=== PATIENT | male | born 1970 | race Caucasian/White ===

== ENCOUNTER 2017-09-11 15:08 | Inpatient (IN) | payer MEDICAID ==
[~2017-09-11] VITALS: Ht 213.4 cm; Wt 165.9 kg
[~2017-09-11 15:08] MED LIST: OXYC-138 PO
[2017-09-11 15:29] LABS: BASOPHILS % (AUTO) 0.5 % (0-1); EOSINOPHILS # (AUTO) 0.1 X10'3 (0-0.9); EOSINOPHILS % (AUTO) 1.5 % (0-6); HEMATOCRIT 38.3 % (42.0-52.0); HEMOGLOBIN 13.3 g/dl (14.0-17.9); LYMPHOCYTES # (AUTO) 2.1 X10'3 (1.1-4.8); LYMPHOCYTES % (AUTO) 38.4 % (21-51); MEAN CORPUSCULAR HEMOGLOBIN 32.2 PG (27.0-31.0); MEAN CORPUSCULAR HGB CONC 34.6 % (33.0-36.5); MEAN PLATELET VOLUME 7.2 FL (7.4-10.4); MONOCYTES # (AUTO) 0.4 X10'3 (0-0.9); MONOCYTES % (AUTO) 6.6 % (2-12); NEUTROPHILS # (AUTO) 2.9 X10'3 (1.8-7.7); PLATELET COUNT 214 X10'3 (140-440); RED BLOOD COUNT 4.12 X10'6 (4.70-6.10); RED CELL DISTRIBUTION WIDTH 13.9 % (11.5-14.5); WHITE BLOOD COUNT 5.4 X10'3 (4.5-11.0)
[2017-09-11 15:40] LABS: INR 0.9 INR; PARTIAL THROMBOPLASTIN TIME 25 SECONDS (22-32); PROTHROMBIN TIME 9.8 SECONDS (9.0-12.0)
[2017-09-11 15:44] LABS: GLUCOSE 126 MG/DL (70-104); SODIUM 139 MMOL/L (135-145)
[2017-09-11 15:45] LABS: ALANINE AMINOTRANSFERASE 25 U/L (12-78); ALBUMIN 4.3 G/DL (3.4-5.0); ALBUMIN/GLOBULIN RATIO 1.4 (1.1-1.5); ALKALINE PHOSPHATASE 94 IU/L (46-116); ANION GAP 11 (8-16); ASPARTATE AMINO TRANSFERASE 20 U/L (10-37); BILIRUBIN,TOTAL 0.5 MG/DL (0.1-1.0); BLOOD UREA NITROGEN 6 MG/DL (7-18); BUN/CREATININE RATIO 6.8 (5.4-32.0); CHLORIDE 103 MMOL/L (99-107); CREATININE 0.88 MG/DL (0.60-1.10); POTASSIUM 4.2 MMOL/L (3.5-5.1); TOTAL CARBON DIOXIDE 25.1 MMOL/L (24-32); TOTAL PROTEIN 7.4 G/DL (6.4-8.2); eGFR > 90 ML/MIN
[2017-09-11] MEDS ORDERED: aspirin 81mg tab.chew PO ONE (16:10)
[2017-09-11] MEDS ORDERED: normal saline 1000ml 1,000 ML IV SCH (16:12)
[2017-09-11] MEDS ORDERED: HYDROcodone/acetaminophen 5mg/325mg tablet PO PRN (16:15)
[2017-09-11] MEDS ORDERED: potassium Cl 20 mEq SR tablet PO PRN ×2 (16:15)
[2017-09-11] MEDS ORDERED: magnesium hydroxide 30ml (MOM) UD suspension PO PRN (16:15)
[2017-09-11] MEDS ORDERED: mag hydrox/Alum hydrox/simeth 30ml oral suspension PO PRN (16:15)
[2017-09-11] MEDS ORDERED: morphine 4 MG/ML inj SYRINge IV PRN ×2 (16:15)
[2017-09-11] MEDS ORDERED: HYDROcodone/acetaminophen 10/325mg tab PO PRN (16:15)
[2017-09-11] MEDS ORDERED: magnesium 4gm in 100ml NS 100 ML IV PRN (16:15)
[2017-09-11] MEDS ORDERED: acetaminophen 325mg tablet PO PRN ×2 (16:15)
[2017-09-11] MEDS ORDERED: magnesium Cl slow-release 64mg tablet PO PRN (16:15)
[2017-09-11] MEDS ORDERED: magnesium/D5W IVPB 50 ML IV PRN (16:15)
[2017-09-11] MEDS ORDERED: potassium Cl 40MEQ/NS 500ml 500 ML IV PRN ×2 (16:15)
[2017-09-11] MEDS: ondansetron/PF 4mg/2ml inj IV PRN ×2 (16:35→22:22)
[2017-09-11] MEDS ORDERED: CAFFEINE CITRATE 60 MG/3 ML injection vial IV PRN (16:50)
[2017-09-11] MEDS ORDERED: regadenoson 0.4mg/5ml syringe IV PRN (16:50)
[2017-09-11] MEDS ORDERED: metoprolol tartrate 1mg/ml inj IV PRN (16:50)
[2017-09-11 17:14] VITALS: BP 138/96
[2017-09-11] MEDS: HYDROmorphone 1 mg/ml syringe IV PRN ×2 (17:30→21:15)
[2017-09-11 18:04] LABS: ACETAMINOPHEN < 2.0 UG/ML (10-30)
[2017-09-11 19:00] VITALS: BP 130/83
[2017-09-11] MEDS: nitroGLYCERIN 0.4mg SUBLingual tab SL PRN ×3 (20:36→20:49)
[2017-09-11] MEDS ORDERED: ibuprofen 200mg tablet PO ONE (21:00)
[2017-09-11] MEDS ORDERED: nitroGLYCERIN 0.4mg SUBLingual tab SL PRN (22:20)
[2017-09-11] MEDS ORDERED: ACET-812 PO (22:48)
[2017-09-11] MEDS ORDERED: LANS15CA10 PO (22:48)
[2017-09-11 23:46] VITALS: BP 103/72
[2017-09-12] VITALS (13 sets, daily range): BP systolic 91–119; BP diastolic 57–84
[2017-09-12] MEDS: HYDROmorphone 1 mg/ml syringe IV PRN ×2 (04:06→07:44)
[2017-09-12 05:20] LABS: BASOPHILS % (AUTO) 0.5 % (0-1); EOSINOPHILS # (AUTO) 0.1 X10'3 (0-0.9); EOSINOPHILS % (AUTO) 1.7 % (0-6); HEMATOCRIT 40.7 % (42.0-52.0); LYMPHOCYTES # (AUTO) 1.7 X10'3 (1.1-4.8); LYMPHOCYTES % (AUTO) 34.4 % (21-51); MEAN CORPUSCULAR HEMOGLOBIN 32.1 PG (27.0-31.0); MEAN CORPUSCULAR HGB CONC 34.4 % (33.0-36.5); MEAN CORPUSCULAR VOLUME 93.4 FL (78-98); MEAN PLATELET VOLUME 7.8 FL (7.4-10.4); MONOCYTES # (AUTO) 0.2 X10'3 (0-0.9); MONOCYTES % (AUTO) 4.6 % (2-12); NEUTROPHILS # (AUTO) 2.8 X10'3 (1.8-7.7); NEUTROPHILS % (AUTO) 58.8 % (42-75); PLATELET COUNT 206 X10'3 (140-440); RED BLOOD COUNT 4.35 X10'6 (4.70-6.10); RED CELL DISTRIBUTION WIDTH 14.1 % (11.5-14.5); WHITE BLOOD COUNT 4.8 X10'3 (4.5-11.0)
[2017-09-12 06:01] LABS: ALANINE AMINOTRANSFERASE 21 U/L (12-78); ALBUMIN 4.2 G/DL (3.4-5.0); ALBUMIN/GLOBULIN RATIO 1.2 (1.1-1.5); ALKALINE PHOSPHATASE 96 IU/L (46-116); ANION GAP 10 (8-16); ASPARTATE AMINO TRANSFERASE 14 U/L (10-37); BILIRUBIN,TOTAL 0.5 MG/DL (0.1-1.0); BLOOD UREA NITROGEN 6 MG/DL (7-18); BUN/CREATININE RATIO 6.5 (5.4-32.0); CALCIUM 9.2 MG/DL (8.5-10.1); CHLORIDE 102 MMOL/L (99-107); CREATININE 0.93 MG/DL (0.60-1.10); GLUCOSE 134 MG/DL (70-104); POTASSIUM 4.1 MMOL/L (3.5-5.1); SODIUM 141 MMOL/L (135-145); TOTAL CARBON DIOXIDE 29.3 MMOL/L (24-32); TOTAL PROTEIN 7.6 G/DL (6.4-8.2); eGFR 86 ML/MIN
[2017-09-12] MEDS ORDERED: pantoprazole 40mg Tablet.DR PO SCH (07:30)
[2017-09-12] MEDS: ondansetron/PF 4mg/2ml inj IV PRN (07:44)
[2017-09-12] MEDS ORDERED: enoxaparin 40mg/0.4ml syringe SUBCUT SCH (08:00)
[2017-09-12] MEDS ORDERED: K and/or MAG REPLACEMENT MC SCH (08:00)
[2017-09-12] MEDS ORDERED: CAFFEINE CITRATE 60 MG/3 ML injection vial IV ONE (08:37)
[2017-09-12] MEDS ORDERED: regadenoson 0.4mg/5ml syringe IV ONE (08:37)
[2017-09-12 09:18] LABS: CHOL/HDL RATIO 5.4 (0.00-4.99); CHOLESTEROL 242 MG/DL (0-200); HDL CHOLESTEROL 45 MG/DL (35-60); LDL CHOLESTEROL 163 MG/DL (50-100); TRIGLYCERIDES 134 MG/DL (20-135)
[2017-09-12] MEDS ORDERED: oxyCODONE/APAP 5-325mg tablet PO PRN (11:25)
[2017-09-12] MEDS ORDERED: atorvastatin 20mg tablet PO SCH (11:30)
[2017-09-12] MEDS ORDERED: meclizine 12.5mg tablet PO PRN (11:35)
[2017-09-12] MEDS ORDERED: ASPI-611 PO (14:03)
[2017-09-12] MEDS ORDERED: ATOR20TA66 PO (14:03)
[2017-09-12] MEDS ORDERED: PANT40TA4 PO (14:03)
[2017-09-12] MEDS ORDERED: MECL12.584 PO (14:03)
== END 2017-09-12 15:00 | disposition home or self-care (01) | DRG 243 ==
LOC: ER 15:09 → ED HOLD 16:12 → SUR 3N 16:37
PROVIDERS: ADMIT Internal Medicine; ATTEND Family Medicine
PROC: 4A02XM4 Measurement of Cardiac Total Activity, External Approach (ICD-10-PCS; principal; 2017-09-12)
PROC: 3E033HZ Introduction of Radioactive Substance into Peripheral Vein, Percutaneous Approach (ICD-10-PCS; 2017-09-12)
DX: K21.9 Gastro-esophageal reflux disease without esophagitis (principal); F11.10 Opioid abuse, uncomplicated; E66.9 Obesity, unspecified; F12.90 Cannabis use, unspecified, uncomplicated; G89.4 Chronic pain syndrome; H81.10 Benign paroxysmal vertigo, unspecified ear; M47.812 Spondylosis without myelopathy or radiculopathy, cervical region; Z79.899 Other long term (current) drug therapy; Z82.49 Family history of ischemic heart disease and other diseases of the circulatory system; Z86.73 Personal history of transient ischemic attack (TIA), and cerebral infarction without residual deficits; Z98.84 Bariatric surgery status; Z68.36 Body mass index [BMI] 36.0-36.9, adult; Z88.0 Allergy status to penicillin; Z88.8 Allergy status to other drugs, medicaments and biological substances; Z88.5 Allergy status to narcotic agent
CPT/HCPCS: 36415; 70450; 71045; 78451; 80053; 80061; 80329; 83605; 83735; 83880; 84484; 85025; 85610; 85730; 87040; 87070; 93005; 93017; 93306; 99285; A9500; J1170; J1650; J2405; J7030; J8597

== ENCOUNTER 2017-12-03 13:39 | Emergency (ER) | payer MEDICAID ==
[~2017-12-03] VITALS: Ht 213.4 cm; Wt 165.9 kg
[~2017-12-03 13:39] MED LIST changes: +ACET-812 PO; +ATOR20TA66 PO; +LANS15CA10 PO; +MECL12.584 PO; -OXYC-138 PO
[2017-12-03 13:42] VITALS: BP 139/81
[2017-12-03] MEDS ORDERED: oxyCODONE/APAP 10/325mg tablet PO ONE (14:15)
[2017-12-03] MEDS ORDERED: PER10325T PO (15:05)
== END 2017-12-03 15:15 | disposition home or self-care (01) ==
LOC: ER 13:40
DX: S60.211A Contusion of right wrist, initial encounter (principal); G89.29 Other chronic pain; Z86.73 Personal history of transient ischemic attack (TIA), and cerebral infarction without residual deficits; Z88.5 Allergy status to narcotic agent; Z88.0 Allergy status to penicillin; Z79.899 Other long term (current) drug therapy; Z56.0 Unemployment, unspecified; X58.XXXA Exposure to other specified factors, initial encounter; Y93.89 Activity, other specified; Y92.89 Other specified places as the place of occurrence of the external cause; Y99.8 Other external cause status
CPT/HCPCS: 29125; 71045; 73110; 73130; 99284

== ENCOUNTER 2018-10-01 07:22 | Emergency (ER) | payer MEDICAID ==
[~2018-10-01] VITALS: Ht 215.9 cm; Wt 170.0 kg
[2018-10-01] MEDS ORDERED: LIDOcaine 1% w/epiNEPHrine 1:200,000 30ml vial IM ONE (08:40)
[2018-10-01] MEDS ORDERED: TETanus/Pertussis (Acell)/Diphther VAC/PF (Tdap-Adult) 0.5ml syringe IM ONE (08:40)
[2018-10-01] MEDS ORDERED: CEPH-572 PO (10:06)
[2018-10-01 10:08] VITALS: BP 138/85
== END 2018-10-01 10:10 | disposition home or self-care (01) ==
LOC: ER 07:23
DX: S91.115A Laceration without foreign body of left lesser toe(s) without damage to nail, initial encounter (principal); G89.29 Other chronic pain; F10.99 Alcohol use, unspecified with unspecified alcohol-induced disorder; Z86.73 Personal history of transient ischemic attack (TIA), and cerebral infarction without residual deficits; Z98.84 Bariatric surgery status; Z98.890 Other specified postprocedural states; Z56.0 Unemployment, unspecified; Z88.5 Allergy status to narcotic agent; Z88.0 Allergy status to penicillin; Z79.899 Other long term (current) drug therapy; W26.8XXA Contact with other sharp object(s), not elsewhere classified, initial encounter; Y93.89 Activity, other specified; Y92.89 Other specified places as the place of occurrence of the external cause; Y99.8 Other external cause status; Y90.9 Presence of alcohol in blood, level not specified
CPT/HCPCS: 12001; 73660; 90471; 99283; 99284

== ENCOUNTER 2020-04-25 17:55 | Observation (INO) | payer MEDICAID ==
[~2020-04-25] VITALS: Ht 213.4 cm; Wt 171.4 kg
[~2020-04-25 17:55] MED LIST changes: +MECL-226 PO; -MECL12.584 PO
[2020-04-25] MEDS ORDERED: normal saline 1000ML IV soln IVB ONE (18:25)
[2020-04-25] MEDS ORDERED: aspirin 81mg tab.chew PO ONE (18:25)
[2020-04-25] MEDS ORDERED: nitroGLYCERIN 0.4mg/hour patch TD ONE (18:25)
[2020-04-25 18:28] LABS: BASOPHILS % (AUTO) 0.6 % (0-1); EOSINOPHILS # (AUTO) 0.2 X10'3 (0-0.9); EOSINOPHILS % (AUTO) 2.9 % (0-6); HEMATOCRIT 40.8 % (42.0-52.0); HEMOGLOBIN 13.8 g/dl (14.0-17.9); LYMPHOCYTES # (AUTO) 1.7 X10'3 (1.1-4.8); LYMPHOCYTES % (AUTO) 32.2 % (21-51); MEAN CORPUSCULAR HEMOGLOBIN 31.1 PG (27.0-31.0); MEAN CORPUSCULAR HGB CONC 33.9 g/dL (33.0-36.5); MEAN CORPUSCULAR VOLUME 91.9 FL (78-98); MEAN PLATELET VOLUME 8.3 FL (7.4-10.4); MONOCYTES # (AUTO) 0.3 X10'3 (0-0.9); MONOCYTES % (AUTO) 6.2 % (2-12); NEUTROPHILS % (AUTO) 58.1 % (42-75); PLATELET COUNT 193 X10'3 (140-440); RED BLOOD COUNT 4.43 X10'6 (4.70-6.10); RED CELL DISTRIBUTION WIDTH 14.1 % (11.5-14.5); WHITE BLOOD COUNT 5.2 X10'3 (4.5-11.0)
[2020-04-25 18:37] LABS: ALANINE AMINOTRANSFERASE 28 U/L (12-78); ALBUMIN 4.3 G/DL (3.4-5.0); ALBUMIN/GLOBULIN RATIO 1.2 (1.1-1.5); ALKALINE PHOSPHATASE 96 IU/L (46-116); ANION GAP 9 (8-16); ASPARTATE AMINO TRANSFERASE 30 U/L (10-37); BILIRUBIN,TOTAL 0.4 MG/DL (0.1-1.0); BLOOD UREA NITROGEN 9 MG/DL (7-18); BUN/CREATININE RATIO 9.2 (5.4-32.0); CALCIUM 9.2 MG/DL (8.5-10.1); CHLORIDE 103 MMOL/L (99-107); CREATININE 0.98 MG/DL (0.60-1.10); GLUCOSE 246 MG/DL (70-104); POTASSIUM 3.8 MMOL/L (3.5-5.1); SODIUM 141 MMOL/L (135-145); TOTAL PROTEIN 7.9 G/DL (6.4-8.2); eGFR 80 ML/MIN
[2020-04-25] MEDS ORDERED: meclizine 12.5mg tablet PO ONE (19:00)
[2020-04-25] MEDS ORDERED: APIX5TAB3 PO (19:47)
[2020-04-25] MEDS ORDERED: OXYC10TA47 PO (19:50)
[2020-04-25] MEDS ORDERED: CLOT15CR11 TOP (19:50)
[2020-04-25] MEDS ORDERED: LANS30CA37 PO (19:51)
[2020-04-25] MEDS ORDERED: ondansetron/PF 4mg/2ml inj IV PRN (20:50)
[2020-04-25] MEDS ORDERED: acetaminophen 325mg tablet PO PRN ×2 (20:50)
[2020-04-25] MEDS ORDERED: magnesium hydroxide 30ml (MOM) UD suspension PO PRN (20:50)
[2020-04-25] MEDS ORDERED: HYDROcodone/acetaminophen 5mg/325mg tablet PO PRN (20:50)
[2020-04-25] MEDS ORDERED: oxyCODONE IR 5mg (immed. release) tablet PO PRN (20:50)
[2020-04-25] MEDS ORDERED: morphine 2 MG/ML inj. syringe IV PRN ×2 (20:50)
[2020-04-25] MEDS ORDERED: HYDROcodone/acetaminophen 10/325mg tab PO PRN (20:50)
[2020-04-25] MEDS ORDERED: mag hydrox/Alum hydrox/simeth 30ml oral suspension PO PRN (20:50)
[2020-04-25] MEDS ORDERED: nitroGLYCERIN 0.4mg SUBLingual tab SL PRN (20:50)
[2020-04-25] MEDS ORDERED: clotrimazole topical cream 15gm tube TP PRN (20:50)
--- NOTE | 2020-04-25 22:48 | NUR ---
efran want to go home and does not want to be here.
--- NOTE | 2020-04-25 23:00 | NUR ---
Notified by laboratory personel that patient refused to have labs drawn.
--- NOTE | 2020-04-25 23:21 | NUR ---
STOPPED IN HALLWAY BY PATIENT RAISED VOICE AND WANTS TO KNOW WHY HE HAS NOT BEEN DISCHARGE HE DID NOT KNOW HE WAS BEING ADMITTED. SPOKE TO [employer]IR[employer]STERS MANAGER AND PAGED HOSPITALIST. PATIENT WANTED TO SPEAK TO HOSPITALIST AND REFUSES TO LEAVE AMA AFTER AGREEING TO LEAVE AND GO HOME REPORTS HE CAN NOT AFFORD TO STAY HERE AT THIS POINT PATIENT. CELL PHONE [phone] AND WANTS TO SPEAK TO MD IN HIS CARE NOW DR HUFFMAN WILL CALL PATIENT CELL PHONE AND SPEAK WITH PATIENT
[2020-04-26] VITALS (8 sets, daily range): BP systolic 118–136; BP diastolic 67–86
--- NOTE | 2020-04-26 01:15 | NUR ---
Pt is sleeping and does not want his vital signs taken, Pt moving about room, talking, no complaints of dizziness, or chest pain.
[2020-04-26] MEDS ORDERED: metoprolol tartrate 1mg/ml inj IV PRN (03:15)
[2020-04-26] MEDS ORDERED: nitroGLYCERIN 0.4mg SUBLingual tab SL PRN (03:15)
[2020-04-26] MEDS ORDERED: aminophylline 250mg/10ml inj. IV PRN (03:15)
--- NOTE | 2020-04-26 04:50 | NUR ---
Pt sleeping on his side. Pt declined vital signs stating he was fine.
[2020-04-26] MEDS ORDERED: regadenoson 0.4mg/5ml syringe IV ONE (06:00)
--- NOTE | 2020-04-26 06:42 | NUR ---
IN TO SEE PT VS DONE. PT DECLINES TO BE PLACED ON THE 5 LEAD MONITOR AT THIS TIME
--- NOTE | 2020-04-26 07:43 | NUR ---
NUC Squabbler IN ROOM TO INJECT AND WILL BE BACK BETWEEN FOR THE SCAN
[2020-04-26] MEDS ORDERED: apixaban 5mg tablet PO SCH (08:00)
[2020-04-26] MEDS ORDERED: aspirin 81mg tablet.DR PO SCH (08:00)
[2020-04-26] MEDS ORDERED: pantoprazole 40mg Tablet.DR PO SCH (08:00)
[2020-04-26 08:33] LABS: BASOPHILS % (AUTO) 0.8 % (0-1); EOSINOPHILS # (AUTO) 0.2 X10'3 (0-0.9); EOSINOPHILS % (AUTO) 4.2 % (0-6); HEMATOCRIT 35.9 % (42.0-52.0); HEMOGLOBIN 12.2 g/dl (14.0-17.9); LYMPHOCYTES # (AUTO) 1.4 X10'3 (1.1-4.8); LYMPHOCYTES % (AUTO) 33.5 % (21-51); MEAN CORPUSCULAR HEMOGLOBIN 30.9 PG (27.0-31.0); MEAN CORPUSCULAR HGB CONC 33.9 g/dL (33.0-36.5); MEAN CORPUSCULAR VOLUME 91.1 FL (78-98); MEAN PLATELET VOLUME 7.9 FL (7.4-10.4); MONOCYTES # (AUTO) 0.3 X10'3 (0-0.9); MONOCYTES % (AUTO) 8.4 % (2-12); NEUTROPHILS # (AUTO) 2.2 X10'3 (1.8-7.7); NEUTROPHILS % (AUTO) 53.1 % (42-75); PLATELET COUNT 165 X10'3 (140-440); RED BLOOD COUNT 3.94 X10'6 (4.70-6.10); RED CELL DISTRIBUTION WIDTH 14.1 % (11.5-14.5); WHITE BLOOD COUNT 4.1 X10'3 (4.5-11.0)
[2020-04-26 08:52] LABS: HEMOGLOBIN A1C 7.7 % (4.5-6.2)
[2020-04-26 09:01] LABS: ALBUMIN 3.5 G/DL (3.4-5.0); ANION GAP 7 (8-16); BLOOD UREA NITROGEN 7 MG/DL (7-18); CALCIUM 8.7 MG/DL (8.5-10.1); CHLORIDE 107 MMOL/L (99-107); CHOL/HDL RATIO 4.9 (0.00-4.99); CHOLESTEROL 214 MG/DL (0-200); CREATININE 0.87 MG/DL (0.60-1.10); GLUCOSE 178 MG/DL (70-104); HDL CHOLESTEROL 44 MG/DL (35-60); LDL CHOLESTEROL 143 MG/DL (50-100); POTASSIUM 3.8 MMOL/L (3.5-5.1); SODIUM 142 MMOL/L (135-145); TOTAL CARBON DIOXIDE 28.2 MMOL/L (24-32); TRIGLYCERIDES 128 MG/DL (20-135); eGFR > 90 ML/MIN
== END 2020-04-26 13:52 | disposition home or self-care (01) ==
LOC: ER 17:55 → ED HOLD 20:49
PROVIDERS: ADMIT Internal Medicine; ATTEND Family Medicine
DX: R07.89 Other chest pain (principal); R42 Dizziness and giddiness; E11.9 Type 2 diabetes mellitus without complications; E66.01 Morbid (severe) obesity due to excess calories; M19.90 Unspecified osteoarthritis, unspecified site; G89.29 Other chronic pain; M54.9 Dorsalgia, unspecified; Z86.718 Personal history of other venous thrombosis and embolism; Z86.73 Personal history of transient ischemic attack (TIA), and cerebral infarction without residual deficits; Z87.891 Personal history of nicotine dependence; Z98.84 Bariatric surgery status; Z79.82 Long term (current) use of aspirin; Z79.01 Long term (current) use of anticoagulants; Z79.899 Other long term (current) drug therapy; Z88.0 Allergy status to penicillin; Z88.5 Allergy status to narcotic agent; Z68.37 Body mass index [BMI] 37.0-37.9, adult
CPT/HCPCS: 36415; 70450; 71045; 78452; 80048; 80053; 80061; 83036; 83880; 84484; 85025; 93005; 93017; 96360; 99285; A9500; G0378; J2785; J7030; J8597

== ENCOUNTER 2022-05-24 09:26 | Inpatient (IN) | payer MEDICAID ==
[~2022-05-24] VITALS: Ht 208.3 cm; Wt 122.7 kg
[~2022-05-24 09:26] MED LIST changes: -ACET-812 PO; +APIX5TAB3 PO; -ATOR20TA66 PO; +CLOT15CR11 TOP; -LANS15CA10 PO; +LANS30CA37 PO; -MECL-226 PO; +OXYC10TA47 PO
[2022-05-24] MEDS ORDERED: oxyCODONE/APAP 10/325mg tablet PO ONE (12:10)
[2022-05-24] MEDS ORDERED: heparin 10,000 units/1 ML INJ IV ONE (13:10)
[2022-05-24] MEDS ORDERED: iohexol 350MG/ML 100ml bottle IV ONE (13:19)
[2022-05-24] MEDS: heparin 25,000 UNIT/250ml bag 250 ML IV PRN (14:44)
--- NOTE | 2022-05-24 14:47 | NUR ---
next pTT is 2030
[2022-05-24 14:51] LABS: BASOPHILS % (AUTO) 0.9 % (0-1); EOSINOPHILS % (AUTO) 0.9 % (0-6); HEMATOCRIT 43.2 % (42.0-52.0); HEMOGLOBIN 14.2 g/dl (14.0-17.9); LYMPHOCYTES % (AUTO) 18.8 % (21-51); MEAN CORPUSCULAR HEMOGLOBIN 30.4 PG (27.0-31.0); MEAN CORPUSCULAR HGB CONC 32.7 g/dL (33.0-36.5); MEAN CORPUSCULAR VOLUME 92.9 FL (78-98); MEAN PLATELET VOLUME 7.6 FL (7.4-10.4); MONOCYTES # (AUTO) 0.2 X10'3 (0-0.9); MONOCYTES % (AUTO) 3.9 % (2-12); NEUTROPHILS # (AUTO) 3.9 X10'3 (1.8-7.7); NEUTROPHILS % (AUTO) 75.5 % (42-75); PLATELET COUNT 292 X10'3 (140-440); RED BLOOD COUNT 4.65 X10'6 (4.70-6.10); RED CELL DISTRIBUTION WIDTH 14.1 % (11.5-14.5); WHITE BLOOD COUNT 5.2 X10'3 (4.5-11.0)
[2022-05-24 14:59] LABS: APTT 30 SECONDS (22-32)
[2022-05-24 15:00] LABS: ALANINE AMINOTRANSFERASE 16 U/L (12-78); ALBUMIN 4.5 G/DL (3.4-5.0); ALBUMIN/GLOBULIN RATIO 1.3 (1.1-1.5); ALKALINE PHOSPHATASE 137 IU/L (46-116); ANION GAP 7 (8-16); ASPARTATE AMINO TRANSFERASE 26 U/L (10-37); BILIRUBIN,TOTAL 0.7 MG/DL (0.1-1.0); BLOOD UREA NITROGEN 10 MG/DL (7-18); BUN/CREATININE RATIO 11.2 (5.4-32.0); CALCIUM 9.6 MG/DL (8.5-10.1); CHLORIDE 97 MMOL/L (99-107); CREATININE 0.89 MG/DL (0.60-1.10); GLUCOSE 168 MG/DL (70-104); POTASSIUM 4.3 MMOL/L (3.5-5.1); SODIUM 134 MMOL/L (135-145); TOTAL CARBON DIOXIDE 30.4 MMOL/L (24-32); eGFR 89 ML/MIN
[2022-05-24] MEDS ORDERED: ondansetron/PF 4mg/2ml inj IV ONE (15:15)
[2022-05-24] MEDS: morphine 4 MG/ML inj SYRINge IV PRN ×2 (15:24→18:53)
[2022-05-24] MEDS ORDERED: HYDROmorphone/PF 0.2 MG/ML SYRINGE IV PRN (16:25)
[2022-05-24] MEDS ORDERED: acetaminophen 325mg tablet PO PRN (16:25)
[2022-05-24] MEDS ORDERED: mag hydrox/Alum hydrox/simeth 30ml oral suspension PO PRN (16:25)
[2022-05-24] MEDS ORDERED: potassium Cl 40MEQ/1/2NS 520ml 520 ML IV PRN (16:25)
[2022-05-24] MEDS ORDERED: magnesium 4gm in 100ml NS 100 ML IV PRN (16:25)
[2022-05-24] MEDS ORDERED: HYDROmorphone inj. 0.5 MG/0.5 ML DISP.SYRIN IV PRN (16:25)
[2022-05-24] MEDS ORDERED: magnesium Cl slow-release 64mg tablet PO PRN (16:25)
[2022-05-24] MEDS ORDERED: ondansetron/PF 4mg/2ml inj IV PRN (16:25)
[2022-05-24] MEDS ORDERED: magnesium hydroxide 30ml (MOM) UD suspension PO PRN (16:25)
[2022-05-24] MEDS ORDERED: potassium Cl 20 mEq SR tablet PO PRN ×2 (16:25)
--- NOTE | 2022-05-24 16:38 | NUR ---
Back from [place] at this time.
[2022-05-24] MEDS ORDERED: TIZA-205 PO (17:07)
[2022-05-24] MEDS ORDERED: OXYC30TA PO (17:07)
[2022-05-24] MEDS ORDERED: FEXO-310 PO (17:07)
[2022-05-24] MEDS ORDERED: MORP60TA77 PO (17:07)
[2022-05-24] MEDS ORDERED: BUSP15TA3 PO (17:07)
[2022-05-24] MEDS ORDERED: loratadine 10mg tablet PO PRN (17:35)
[2022-05-24] MEDS ORDERED: OXYcodone immediate-release 10MG tablet PO PRN (17:35)
[2022-05-24] MEDS ORDERED: tizanidine 4mg tablet PO PRN (17:35)
[2022-05-24] MEDS ORDERED: busPIRone 15mg tablet PO PRN (17:35)
[2022-05-24] MEDS: normal saline 1000ml 1,000 ML IV SCH (19:12)
[2022-05-24] MEDS ORDERED: K and/or MAG REPLACEMENT MC SCH (20:00)
[2022-05-24] MEDS: docusate sod 100mg capsule PO SCH (20:36)
[2022-05-24] MEDS: morphine ER 30mg tablet PO SCH (20:36)
--- NOTE | 2022-05-24 21:43 | NUR ---
HEP DRIP TURNED OFF BY ARACELIS WEIR MD NOTIFIED
--- NOTE | 2022-05-24 22:04 | NUR ---
next pt-ptt at 2345 hep drip on hold, aware
--- NOTE | 2022-05-24 22:05 | NUR ---
report called to floor rn pt tx to room 3023 by [facility].
[2022-05-24 22:45] VITALS: BP 133/95
[2022-05-25] MEDS: oxyCODONE IR 5mg (immed. release) tablet PO PRN ×2 (01:16→10:30)
[2022-05-25] MEDS: heparin 25,000 UNIT/250ml bag 250 ML IV PRN (01:57)
[2022-05-25] MEDS: normal saline 1000ml 1,000 ML IV SCH (02:25)
[2022-05-25] MEDS: morphine ER 30mg tablet PO SCH (05:17)
[2022-05-25 07:00] VITALS: BP 141/75
[2022-05-25] MEDS ORDERED: pantoprazole 40mg Tablet.DR PO SCH (08:00)
[2022-05-25] MEDS: docusate sod 100mg capsule PO SCH (08:00)
--- NOTE | 2022-05-25 09:19 | NUR ---
patient refusing DVT PTT because he is a hard stick and is getting DC at 1100 according to him. I will confirm with Dr. Ramy HAMMER
[2022-05-25 09:22] LABS: BASOPHILS % (AUTO) 0.5 % (0-1); EOSINOPHILS # (AUTO) 0.1 X10'3 (0-0.9); HEMATOCRIT 45.8 % (42.0-52.0); HEMOGLOBIN 14.7 g/dl (14.0-17.9); LYMPHOCYTES # (AUTO) 1.6 X10'3 (1.1-4.8); LYMPHOCYTES % (AUTO) 30.9 % (21-51); MEAN CORPUSCULAR HEMOGLOBIN 30.6 PG (27.0-31.0); MEAN CORPUSCULAR VOLUME 95.6 FL (78-98); MEAN PLATELET VOLUME 7.5 FL (7.4-10.4); MONOCYTES # (AUTO) 0.3 X10'3 (0-0.9); MONOCYTES % (AUTO) 6.2 % (2-12); NEUTROPHILS # (AUTO) 3.2 X10'3 (1.8-7.7); NEUTROPHILS % (AUTO) 60.4 % (42-75); PLATELET COUNT 226 X10'3 (140-440); RED BLOOD COUNT 4.79 X10'6 (4.70-6.10); RED CELL DISTRIBUTION WIDTH 14.6 % (11.5-14.5); WHITE BLOOD COUNT 5.2 X10'3 (4.5-11.0)
[2022-05-25 09:36] LABS: ANION GAP 10 (8-16); BLOOD UREA NITROGEN 10 MG/DL (7-18); BUN/CREATININE RATIO 11.8 (5.4-32.0); CALCIUM 9.6 MG/DL (8.5-10.1); CHLORIDE 99 MMOL/L (99-107); CREATININE 0.85 MG/DL (0.60-1.10); GLUCOSE 130 MG/DL (70-104); MAGNESIUM 2.3 MG/DL (1.5-2.4); POTASSIUM 3.6 MMOL/L (3.5-5.1); SODIUM 134 MMOL/L (135-145); eGFR > 90 ML/MIN
--- NOTE | 2022-05-25 09:36 | NUR ---
Page Sent promotional table spacer PAGER ID: [phone] MESSAGE: [id number] Schneible. Patient refusing lab to draw DVT PTT and states he is going home @1100 per your discussion with him this morning. Should I continue the heparin gtt or bridge to lovenox or home med? Cindi @[phone] (212 character message out of a maximum of 240)
[2022-05-25] MEDS ORDERED: apixaban 5mg tablet PO ONE (10:20)
[2022-05-25] MEDS ORDERED: APIX5TAB3 PO (10:29)
--- NOTE | 2022-05-25 11:15 | NUR ---
Patient was DC to home and picked up by his . PIV was removed with cannula intact. RX went to [facility]. Patient and verbalized understanding of DC instructions and warning s/s. Patient took all belongings with him. Basimn was wheeled to front of hospital and helped into car .
== END 2022-05-25 11:07 | disposition home or self-care (01) | DRG 197 ==
LOC: ER 09:26 → ED HOLD 16:23 → PCU 3S 22:30
PROVIDERS: ADMIT Family Medicine; ATTEND Family Medicine
PROC: CB121ZZ Planar Nuclear Medicine Imaging of Lungs and Bronchi using Technetium 99m (Tc-99m) (ICD-10-PCS; principal; 2022-05-24)
DX: I82.412 Acute embolism and thrombosis of left femoral vein (principal); M87.88 Other osteonecrosis, other site; E11.9 Type 2 diabetes mellitus without complications; G89.4 Chronic pain syndrome; K21.9 Gastro-esophageal reflux disease without esophagitis; R26.2 Difficulty in walking, not elsewhere classified; M25.552 Pain in left hip; M54.9 Dorsalgia, unspecified; I87.8 Other specified disorders of veins; Z86.718 Personal history of other venous thrombosis and embolism; Z86.73 Personal history of transient ischemic attack (TIA), and cerebral infarction without residual deficits; Z98.84 Bariatric surgery status; Z56.0 Unemployment, unspecified; Z88.5 Allergy status to narcotic agent; Z88.0 Allergy status to penicillin; Z79.899 Other long term (current) drug therapy
CPT/HCPCS: 36415; 71045; 78582; 80048; 80053; 83735; 83880; 84484; 85025; 85730; 87081; 93970; 96365; 96375; 96376; 99291; A9539; A9540; G0378; J1644; J2270; J2405; J3490; J7030; Q9967

== ENCOUNTER 2022-06-08 14:19 | Emergency (ER) | payer MEDICAID ==
[~2022-06-08 14:19] MED LIST changes: +BUSP15TA3 PO; -CLOT15CR11 TOP; +FEXO-310 PO; +MORP60TA77 PO; -OXYC10TA47 PO; +OXYC30TA PO; +TIZA-205 PO
[2022-06-08] MEDS ORDERED: morphine 4 MG/ML inj SYRINge IV ONE ×3 (14:20→15:30)
[2022-06-08] MEDS ORDERED: ondansetron/PF 4mg/2ml inj IV ONE (14:55)
[2022-06-08] MEDS ORDERED: oxyCODONE IR 5mg (immed. release) tablet PO ONE (16:00)
[2022-06-08 16:45] VITALS: BP 113/77
== END 2022-06-08 17:13 | disposition home or self-care (01) ==
LOC: ER 14:19
DX: M54.9 Dorsalgia, unspecified (principal); M54.6 Pain in thoracic spine; R55 Syncope and collapse; G89.29 Other chronic pain; Z59.00 Homelessness unspecified; Z88.5 Allergy status to narcotic agent; Z88.0 Allergy status to penicillin; Z79.899 Other long term (current) drug therapy; W19.XXXA Unspecified fall, initial encounter; Y93.89 Activity, other specified; Y92.89 Other specified places as the place of occurrence of the external cause; Y99.8 Other external cause status
CPT/HCPCS: 70450; 72125; 72128; 72131; 96374; 96375; 99285; J2270; J2405

== ENCOUNTER 2022-08-13 18:18 | Emergency (ER) | payer MEDICAID ==
[~2022-08-13] VITALS: Ht 190.5 cm; Wt 127.3 kg
[2022-08-13] MEDS ORDERED: acetaminophen 325mg tablet PO ONE ×2 (18:30→22:10)
--- NOTE | 2022-08-13 18:30 | NUR ---
verbal tylenol order by xiomy millan for po 650 now
[2022-08-13] MEDS ORDERED: normal saline 1000ML IV soln IVB ONE (18:35)
[2022-08-13 18:55] LABS: BASOPHILS % (AUTO) 0.4 % (0-1); EOSINOPHILS % (AUTO) 0.1 % (0-6); HEMATOCRIT 33.4 % (42.0-52.0); HEMOGLOBIN 11.3 g/dl (14.0-17.9); LYMPHOCYTES # (AUTO) 0.6 X10'3 (1.1-4.8); LYMPHOCYTES % (AUTO) 7.4 % (21-51); MEAN CORPUSCULAR HEMOGLOBIN 30.6 PG (27.0-31.0); MEAN CORPUSCULAR HGB CONC 33.9 g/dL (33.0-36.5); MEAN CORPUSCULAR VOLUME 90.2 FL (78-98); MEAN PLATELET VOLUME 6.6 FL (7.4-10.4); MONOCYTES # (AUTO) 0.5 X10'3 (0-0.9); MONOCYTES % (AUTO) 6.2 % (2-12); NEUTROPHILS % (AUTO) 85.9 % (42-75); PLATELET COUNT 248 X10'3 (140-440); RED CELL DISTRIBUTION WIDTH 14.3 % (11.5-14.5); WHITE BLOOD COUNT 8.1 X10'3 (4.5-11.0)
[2022-08-13 18:58] LABS: CLARITY,URINE CLEAR (Clear); COLOR,URINE AMBER (Yellow); GLUCOSE, URINE NEGATIVE (Neg); KETONES,URINE NEGATIVE (Neg); LEUKOCYTE ESTERASE ,URINE NEGATIVE (Neg); NITRITES, URINE NEGATIVE (Neg); OCCULT BLOOD,URINE NEGATIVE (Neg); PH,URINE 6.5 (4.8-8.0); PROTEIN,URINE NEGATIVE (Neg); UA COLLECTION TYPE STRAIGHT CATH
--- NOTE | 2022-08-13 19:04 | NUR ---
pt states did take 1st dose of abx after drs appt today
[2022-08-13 19:06] LABS: ALANINE AMINOTRANSFERASE 15 U/L (12-78); ALBUMIN 3.5 G/DL (3.4-5.0); ALBUMIN/GLOBULIN RATIO 1.2 (1.1-1.5); ALKALINE PHOSPHATASE 116 IU/L (46-116); ANION GAP 5 (8-16); ASPARTATE AMINO TRANSFERASE 17 U/L (10-37); BILIRUBIN,TOTAL 0.6 MG/DL (0.1-1.0); BLOOD UREA NITROGEN 8 MG/DL (7-18); CALCIUM 8.9 MG/DL (8.5-10.1); CHLORIDE 98 MMOL/L (99-107); CREATININE 0.89 MG/DL (0.60-1.10); GLUCOSE 173 MG/DL (70-104); MAGNESIUM 1.8 MG/DL (1.5-2.4); POTASSIUM 3.5 MMOL/L (3.5-5.1); SODIUM 137 MMOL/L (135-145); TOTAL CARBON DIOXIDE 34.2 MMOL/L (24-32); TOTAL PROTEIN 6.4 G/DL (6.4-8.2); eGFR 89 ML/MIN
[2022-08-13] MEDS ORDERED: vancomycin/NS 1 GM ADD-VANTAGE 250 ML IV ONE (19:10)
[2022-08-13] MEDS ORDERED: ceFAZolin 1GM/D5W- ADD-VANTAGE 50 ML IV ONE (19:10)
[2022-08-13] MEDS ORDERED: levoFLOXACIN-Levaquin 750MG/D5 150 ML IV ONE (19:10)
[2022-08-13] MEDS ORDERED: ONDA-104 PO (20:08)
[2022-08-13] MEDS ORDERED: DOXY-457 PO (20:08)
[2022-08-13] MEDS ORDERED: POLY510P31 PO (20:08)
[2022-08-13] MEDS ORDERED: ONDA8TAB13 PO (20:08)
[2022-08-13] MEDS ORDERED: LANS30CA56 PO (20:08)
[2022-08-13] MEDS ORDERED: TRAM100T40 (20:08)
[2022-08-13] MEDS ORDERED: ALBU18HF2 (20:08)
[2022-08-13] MEDS ORDERED: BUDE10.26 (20:08)
--- NOTE | 2022-08-13 20:12 | NUR ---
AT BEDSIDE UPSET THAT WE REMOVED LEFT LEG DRESSING. JESSICA MORROW AT BEDSIDE
[2022-08-13] MEDS ORDERED: VARE1TAB29 (20:14)
[2022-08-13] MEDS ORDERED: APIX5TAB3 PO (20:17)
[2022-08-13] MEDS ORDERED: CEPH500C2 PO (20:51)
--- NOTE | 2022-08-13 22:06 | NUR ---
xiomy ingram notified of fever, recieved verbal order for tylenol 650mg po once
[2022-08-13 22:13] VITALS: BP 135/75
== END 2022-08-13 22:15 | disposition home or self-care (01) ==
LOC: ER 18:18
DX: R40.0 Somnolence (principal); J18.9 Pneumonia, unspecified organism; L03.115 Cellulitis of right lower limb; L03.116 Cellulitis of left lower limb; Z88.5 Allergy status to narcotic agent; Z88.0 Allergy status to penicillin; Z79.899 Other long term (current) drug therapy
CPT/HCPCS: 36415; 70450; 71045; 80053; 81003; 83605; 83735; 84145; 85025; 87040; 93005; 96365; 96366; 96368; 99285; A6223; J0690; J1956; J3370; J7030; A6446; A6449

== ENCOUNTER 2022-09-05 15:29 | Emergency (ER) | payer MEDICAID ==
[~2022-09-05] VITALS: Ht 213.4 cm; Wt 134.1 kg
[~2022-09-05 15:29] MED LIST changes: +ALBU18HF2; +BUDE10.26; +DOXY-457 PO; -LANS30CA37 PO; +LANS30CA56 PO; +ONDA8TAB13 PO; +POLY510P31 PO; +TRAM100T40; +VARE1TAB29
[2022-09-05 16:06] VITALS: BP 122/79
[2022-09-05] MEDS ORDERED: LIDOcaine 1% W/epiNEPHrine 1:100,000 20ml vial SQ ONE (17:30)
[2022-09-05] MEDS ORDERED: cephalexin 500mg capsule PO ONE (18:05)
[2022-09-05] MEDS ORDERED: CEPH250T PO (18:34)
[2022-09-05] MEDS ORDERED: bacitracin 15gm ointment TP ONE (18:40)
[2022-09-05] MEDS ORDERED: TETanus/Pertussis (Acell)/Diphther VAC/PF (Tdap-Adult) 0.5ml syringe IMVAC ONE (18:40)
--- NOTE | 2022-09-05 18:55 | NUR ---
DRESSING APPLIED TO LT 3RD TOE POST SUTURE REPAIR
== END 2022-09-05 18:56 | disposition home or self-care (01) ==
LOC: ER 15:30
DX: S91.115A Laceration without foreign body of left lesser toe(s) without damage to nail, initial encounter (principal); E11.9 Type 2 diabetes mellitus without complications; G89.29 Other chronic pain; M54.9 Dorsalgia, unspecified; Z88.5 Allergy status to narcotic agent; Z88.0 Allergy status to penicillin; Z79.899 Other long term (current) drug therapy; Z79.82 Long term (current) use of aspirin; Z79.1 Long term (current) use of non-steroidal anti-inflammatories (NSAID); X58.XXXA Exposure to other specified factors, initial encounter; Y93.89 Activity, other specified; Y92.89 Other specified places as the place of occurrence of the external cause; Y99.8 Other external cause status
CPT/HCPCS: 12001; 73630; 90471; 90715; 99283

== ENCOUNTER 2022-10-14 21:02 | Emergency (ER) | payer MEDICAID ==
[~2022-10-14] VITALS: Ht 213.4 cm; Wt 122.7 kg
[~2022-10-14 21:02] MED LIST changes: -ALBU18HF2; -BUDE10.26; -BUSP15TA3 PO; -DOXY-457 PO; -FEXO-310 PO; +LANS30CA37 PO; -LANS30CA56 PO; -MORP60TA77 PO; -ONDA8TAB13 PO; -OXYC30TA PO; -POLY510P31 PO; -TRAM100T40; +TRAM100T40 PO; -VARE1TAB29
[2022-10-14 21:37] VITALS: BP 150/87; PULSE 90; O2SAT 98
[2022-10-14 23:10] LABS: BASOPHILS % (AUTO) 0.9 % (0-1); EOSINOPHILS # (AUTO) 0.2 X10'3 (0-0.9); EOSINOPHILS % (AUTO) 3.8 % (0-6); HEMATOCRIT 34.5 % (42.0-52.0); HEMOGLOBIN 11.5 g/dl (14.0-17.9); LYMPHOCYTES # (AUTO) 1.6 X10'3 (1.1-4.8); LYMPHOCYTES % (AUTO) 30.3 % (21-51); MEAN CORPUSCULAR HEMOGLOBIN 30.8 PG (27.0-31.0); MEAN CORPUSCULAR HGB CONC 33.5 g/dL (33.0-36.5); MEAN PLATELET VOLUME 6.6 FL (7.4-10.4); MONOCYTES # (AUTO) 0.5 X10'3 (0-0.9); MONOCYTES % (AUTO) 8.7 % (2-12); NEUTROPHILS # (AUTO) 2.9 X10'3 (1.8-7.7); NEUTROPHILS % (AUTO) 56.3 % (42-75); PLATELET COUNT 362 X10'3 (140-440); RED BLOOD COUNT 3.75 X10'6 (4.70-6.10); WHITE BLOOD COUNT 5.2 X10'3 (4.5-11.0)
[2022-10-14 23:23] LABS: ALANINE AMINOTRANSFERASE 17 U/L (12-78); ALBUMIN 3.8 G/DL (3.4-5.0); ALKALINE PHOSPHATASE 133 IU/L (46-116); ANION GAP 7 (8-16); ASPARTATE AMINO TRANSFERASE 24 U/L (10-37); BILIRUBIN,TOTAL 0.5 MG/DL (0.1-1.0); BLOOD UREA NITROGEN 6 MG/DL (7-18); BUN/CREATININE RATIO 7.5 (10.0-20.0); CALCIUM 9.4 MG/DL (8.5-10.1); CHLORIDE 102 MMOL/L (99-107); GLUCOSE 115 MG/DL (70-104); POTASSIUM 3.5 MMOL/L (3.5-5.1); SODIUM 141 MMOL/L (135-145); TOTAL CARBON DIOXIDE 31.8 MMOL/L (24-32); TOTAL PROTEIN 7.5 G/DL (6.4-8.2); eGFR > 90 ML/MIN
[2022-10-14] MEDS ORDERED: HYDROcodone/acetaminophen 10/325mg tab PO ONE (23:35)
[2022-10-14] MEDS ORDERED: morphine 4 MG/ML inj SYRINge IV ONE (23:35)
[2022-10-15 00:02] VITALS: RESP 18
--- NOTE | 2022-10-15 00:09 | NUR ---
6MG MORPHINE GIVEN IM PER MD [place].
== END 2022-10-15 00:10 | disposition home or self-care (01) ==
LOC: ER 21:02
DX: R60.0 Localized edema (principal); E11.9 Type 2 diabetes mellitus without complications; I51.9 Heart disease, unspecified; G89.29 Other chronic pain; M54.9 Dorsalgia, unspecified; Z87.81 Personal history of (healed) traumatic fracture; Z56.0 Unemployment, unspecified; Z88.8 Allergy status to other drugs, medicaments and biological substances; Z79.899 Other long term (current) drug therapy; Z88.0 Allergy status to penicillin
CPT/HCPCS: 36415; 80053; 85025; 93971; 96374; 99285; J2270